=== PATIENT | male | born 1965 | race Caucasian/White ===

== ENCOUNTER 2017-11-02 13:33 | Emergency (ER) | payer MEDICAID, MEDICARE ==
[2017-11-02] MEDS ORDERED: GEODON IM ONE ×2 (14:21→14:31)
--- NOTE | 2017-11-02 14:27 | Emergency Department Report ---
HPI - General Chief Complaint: Psych Time Seen by Provider: 11/02/17 14:14 - HPI HPI: 52-year-old male presents to the emergency department via police department after he was witnessed jumping into traffic. When asked what brought the patient to the hospital he appears to go onto some tangent about needing to get water or soda from [employer] and bringing a prescription to [facility]. However he is unable to tell me what the medication is that he needed to get filled or for what condition he takes it. He is unable to tell me any past medical or psychiatric history. When asked if he has any says "I am cured." He says that he is here because "someone is lying." When I told the patient that I feel that he needs to be evaluated he says "if I have to break out of these cuffs, I' m going to take out your Barrie's apple." ED Past Medical Hx - Social History Smoking Status: Unknown if ever smoked Substance Use Type: Prescribed, Other ED Review of Systems ROS: Stated complaint: MENTAL EVAL Other details as noted in HPI Comment: All other systems reviewed and negative Constitutional: denies: chills, fever Eyes: denies: eye pain, eye discharge, vision change ENT: denies: ear pain, throat pain Respiratory: denies: cough, shortness of breath, wheezing Cardiovascular: denies: chest pain, palpitations Gastrointestinal: denies: abdominal pain, nausea, diarrhea Genitourinary: denies: urgency, dysuria Musculoskeletal: denies: back pain, joint swelling, arthralgia Skin: denies: rash, lesions Neurological: denies: headache, weakness, paresthesias Psychiatric: other (making violent threats). denies: auditory hallucinations ( denies), visual hallucinations (denies) Physical Exam - Physical Exam Vital Signs: Vital Signs 11/02/17 14:00 Temperature 98.9 F Pulse Rate 108 H Respiratory 20 Rate Blood Pressure 173/86 [Right] O2 Sat by Pulse 97 Oximetry Physical Exam: GENERAL: The patient is well-developed well-nourished. HENT: Normocephalic. Atraumatic. Patient has moist mucous membranes. EYES: Extraocular motions are intact. Pupils equal reactive to light bilaterally. NECK: Supple. Trachea is midline. CHEST/LUNGS: Clear to auscultation. There is no respiratory distress noted. HEART/CARDIOVASCULAR: Regular. There is no tachycardia. There is no murmur. ABDOMEN: Abdomen is soft, nontender. Patient has normal bowel sounds. There is no abdominal distention. SKIN: Skin is warm and dry. NEURO: Patient is awake but agitated. He is AAO 3 to person, place and time. However he does display signs of acute psychosis. PSYCH: Patient has some tangential and rambling thoughts. His thoughts also appeared disorganized. He is easily excitable. MUSCULOSKELETAL: There is no tenderness or deformity. There is no limitation range of motion. There is no evidence of acute injury. ED Course Vital Signs 11/02/17 14:00 Temperature 98.9 F Pulse Rate 108 H Respiratory 20 Rate Blood Pressure 173/86 [Right] O2 Sat by Pulse 97 Oximetry ED Medical Decision Making - Lab Data Result diagrams: 11/02/17 14:46 11/02/17 14:46 - Medical Decision Making This patient was brought in by the police after he was found running through and /or jumping into traffic. In the emergency department he has made verbal and violent threats towards myself as well as others. He is able to tell us that he is in the hospital and that the year is 2017, but otherwise his thoughts are tangential and disorganized. He appears to be a good candidate for being made a 1013 and inpatient psychiatric treatment. Urine drug screen and blood alcohol levels are negative. The rest of his labs are mostly unremarkable except for some very mild hyperglycemia. Vital signs stable including being afebrile. He has some hypertension and will be given a dose of Catapres. However I feel the patient is medically cleared for psychiatric placement. - Differential Diagnosis schizophrenia, bipolar disorder, schizoaffective, substance abuse Critical Care Time: No Critical care attestation.: If time is entered above; I have spent that time in minutes in the direct care of this critically ill patient, excluding procedure time. ED Disposition Clinical Impression: Threatening to others, Disorganized behavior Psychosis Qualifiers: Psychosis type: unspecified psychosis type Qualified Code(s): F29 - Unspecified psychosis not due to a substance or known physiological condition Disposition: [id number]/TX-65 PSY HOSP/PSY UNIT Is pt being admited?: No Condition: Stable Referrals: PRIMARY CAREMD [Primary Care Provider] - 3-5 Days Time of Disposition: 16:00
[2017-11-02 14:58] LABS: Basophils # (Auto) 0.1 K/mm3 (0.0-0.1); Basophils % (Auto) 0.9 % (0.0-1.8); Eosinophils % (Auto) 0.5 % (0.0-4.3); Hematocrit 44.2 % (35.5-45.6); Hemoglobin 15.3 gm/dl (11.8-15.2); Lymphocytes # (Auto) 1.5 K/mm3 (1.2-5.4); Lymphocytes % (Auto) 15.9 % (13.4-35.0); Mean Corpuscular HGB Conc 35 % (32-34); Mean Corpuscular Hemoglobin 33 pg (28-32); Mean Corpuscular Volume 95 fl (84-94); Monocytes # (Auto) 0.9 K/mm3 (0.0-0.8); Monocytes % (Auto) 10.1 % (0.0-7.3); Platelet Count 258 K/mm3 (140-440); Red Blood Count 4.68 M/mm3 (3.65-5.03); Red Cell Distribution Width 13.4 % (13.2-15.2)
[2017-11-02 15:12] LABS: BUN/Creatinine Ratio 29; Blood Urea Nitrogen 20 mg/dL (9-20); Hemolysis Index 5
[2017-11-02 15:41] LABS: Bilirubin,Urine NEG (Negative); Blood,Urine NEG (Negative); Color,Urine Yellow (Yellow); Mucus,Urine FEW /HPF; Urobilinogen,Urine < 2.0 mg/dL (<2.0)
[2017-11-02 15:51] LABS: Amphetamine Screen,Urine PRESUMPTIVE NEGATIVE; Benzodiazepines Screen,Urine PRESUMPTIVE NEGATIVE; Cannabinoid Screen,Urine PRESUMPTIVE NEGATIVE; Cocaine Screen,Urine PRESUMPTIVE NEGATIVE; Methadone Screen,Urine PRESUMPTIVE NEGATIVE; Opiate Screen,Urine PRESUMPTIVE NEGATIVE
[2017-11-02] MEDS ORDERED: CATAPRES PO ONE (15:58)
[2017-11-02 21:13] VITALS: BP 138/61
[2017-11-03] MEDS ORDERED: CATAPRES ONE
== END 2017-11-03 02:40 ==
LOC: ED 13:33
DX: F29 Unspecified psychosis not due to a substance or known physiological condition (principal)
CPT/HCPCS: 36415; 80048; 80307; 81001; 85025; 96372; 99285; G0480; J3486; 80320